=== PATIENT | male | born 1965 | race Caucasian/White ===

== ENCOUNTER 2019-07-31 09:24 | Outpatient (CLI) | payer OTHER, SELFPAY ==
--- NOTE | ~2019-07-31 | XR_ITS ---
EXAMINATION: XR foot LT standing 2V, XR foot RT standing 2V DATE: 07/31/2019 09:53 INDICATION: Unspecified osteoarthritis at the bilateral feet TECHNIQUE: 1. Standing dorsal plantar and lateral views of the left foot were obtained. 2. Standing dorsal plantar and lateral views of the right foot were obtained. COMPARISON: None. FINDINGS: Normal alignment at both feet. No fracture. Joint spaces appear normal. No evident osteophytosis or e rosions. Bone island at the head of the left talus. Soft tissues are unremarkable. No ankle joint eff usions. IMPRESSION: 1. Unremarkable radiographs of the bilateral feet with normal joint spaces. Reviewed, dictated and finalized at location A. IMPRESSION: 1. Unremarkable radiographs of the bilateral feet with normal joint spaces.
[2019-08-02 09:08] LABS: Anti Cyclic Citrullinated Pept >250 Units (<20)
== END 2019-07-31 09:25 | disposition home or self-care (01) ==
LOC: ANHIMG 09:26
PROVIDERS: PCP Internal Medicine; Visit Provider Internal Medicine
DX: M19.90 Unspecified osteoarthritis, unspecified site (principal)
CPT/HCPCS: 36415; 73620; 86038; 86200

== ENCOUNTER 2020-05-24 14:02 | Outpatient (CLI) | payer OTHER, SELFPAY ==
[2020-05-24 14:34] LABS: Hemoglobin 13.9 g/dL (14.0-18.0); Mean Corpuscular HGB Conc 32.3 g/dl (32-36); Mean Corpuscular Hemoglobin 29.6 pg (26-34); Mean Corpuscular Volume 91.7 fl (80-100); Mean Platelet Volume 10.3 fl (7.4-10.4); Platelet Count Result 282 k/mm3 (150-375); Red Blood Count 4.69 M/mm3 (4.6-6.20); Red Cell Distribution Width 13.6 % (11.5-14.5)
[2020-05-24 14:40] LABS: Add Urine Microscopic? YES; Appearance Urine Clear (Clear); Bilirubin Urine Negative (Negative); Blood Urine Negative (Negative); Color Urine Yellow (Yellow); Glucose Urine UA Negative (Negative); Ketones Urine Negative (Negative); Leukocyte Esterase Ur Negative LEU/UL (Negative); Mucus Urine Rare /lpf; Nitrate Urine Negative (Negative); Protein Urine 1+ mg/dL (Negative); RBC Urine 0-2 /hpf (0-2); Specific Grav Ur 1.025 (1.001-1.035); Urobilinogen Urine Negative mg/dL (<2.0); WBC Urine 0-3 /hpf
[2020-05-24 14:44] LABS: Creatinine Urine 164.3 mg/dL; Total Protein Urine Random 13 mg/dL; Ur Ttl Prot Creatinine Ratio 0.08 mg/mg (0-0.20)
[2020-05-24 14:47] LABS: Alanine Aminotransferase 29 U/L (4-50); Albumin Level 4.3 g/dL (3.5-5.1); Alkaline Phosphatase 63 U/L (38-126); Anion Gap 4 mmol/L (8-16); Aspartate Amino Transferase 29 U/L (17-59); Bilirubin,Total 0.2 mg/dL (0.2-1.3); Blood Urea Nitrogen 20 mg/dL (9-20); CRP < 0.5 mg/dL (<1.0); Calcium 9.3 mg/dL (8.4-10.2); Carbon Dioxide 27 mmol/L (22-30); Chloride 109 mmol/L (98-107); Estimated Glomerular Filt Rate 57; Glucose 79 mg/dL (75-110); Potassium 4.1 mmol/L (3.4-5.0); Sodium 140 mmol/L (137-145)
[2020-05-24 14:53] LABS: Complement C3 95 mg/dL (88-165)
[2020-05-24 15:38] LABS: Erythrocyte Sedimentation Rate 13 mm/hr (0-20)
[2020-05-29 15:16] LABS: SM Antibody <1.0; SM/RNP Antibody <1.0
[2020-05-29 19:25] LABS: SS-A <1.0; SS-B <1.0
[2020-05-29 19:33] LABS: Scleroderma 70 Antibody <1.0
[2020-05-29 23:35] LABS: ANCA Screen Negative (Negative)
== END 2020-05-24 14:03 | disposition home or self-care (01) ==
PROVIDERS: PCP Internal Medicine; Visit Provider Internal Medicine
DX: R80.9 Proteinuria, unspecified (principal); M05.79 Rheumatoid arthritis with rheumatoid factor of multiple sites without organ or systems involvement; M19.90 Unspecified osteoarthritis, unspecified site
CPT/HCPCS: 36415; 80053; 81001; 82570; 84156; 85027; 85652; 86021; 86140; 86160; 86225; 86235

== ENCOUNTER 2020-12-13 06:58 | Outpatient (CLI) | payer OTHER, SELFPAY ==
[2020-12-13 08:06] LABS: Alanine Aminotransferase 41 U/L (4-50); Alkaline Phosphatase 67 U/L (38-126); Anion Gap 3 mmol/L (8-16); Aspartate Amino Transferase 33 U/L (17-59); Bilirubin,Total 0.3 mg/dL (0.2-1.3); Blood Urea Nitrogen 17 mg/dL (9-20); Carbon Dioxide 29 mmol/L (22-30); Chloride 106 mmol/L (98-107); Estimated Glomerular Filt Rate > 60; Glucose 109 mg/dL (65-110); Potassium 4.3 mmol/L (3.4-5.0); Sodium 138 mmol/L (137-145)
[2020-12-13 08:40] LABS: Hemoglobin A1C 5.3 % (<5.7)
[2020-12-13 08:57] LABS: Creatinine Urine 221.8 mg/dL; Total Protein Urine Random 9 mg/dL; Ur Ttl Prot Creatinine Ratio 0.04 mg/mg (0-0.20)
== END 2020-12-13 06:59 | disposition home or self-care (01) ==
LOC: ANHLAB 07:01
PROVIDERS: PCP Internal Medicine; Visit Provider Internal Medicine
DX: R80.9 Proteinuria, unspecified (principal)
CPT/HCPCS: 36415; 80053; 82570; 83036; 84156

== ENCOUNTER → 2021-01-07 03:39 | Outpatient (CLI) | payer OTHER, SELFPAY ==
[2021-01-07 20:04] LABS: SARS-CoV-2 RNA PCR Negative
== END ==
PROVIDERS: PCP Internal Medicine; Visit Provider Internal Medicine Gastroenterology
DX: Z01.812 Encounter for preprocedural laboratory examination (principal); Z20.822 Contact with and (suspected) exposure to COVID-19
CPT/HCPCS: C9803; U0003; U0005

== ENCOUNTER 2021-01-10 01:22 | Day surgery (SDC) | payer OTHER, SELFPAY ==
[2020-12-25 10:01] VITALS: BMI 21.8
--- NOTE | 2021-01-09 15:28 | PM.HPGS ---
History of Present Illness History of Present Illness Consent: Risks, benefits, and alternatives have been discussed and questions answered. Patient agrees to proceed with procedure. Chief complaint: hx of colon polyps Narrative: Sohail Walton is a 55 year old male who was referred for colon cancer screening. He has had polyps removed in the past, about 3 years ago Review of Systems Review of Systems: All systems reviewed & are unremarkable except as noted in HPI and below PMFSH Past Medical History Medical History Arthritis Bilateral hand pain Inflammatory arthritis Protein in urine (~03/2020) Rheumatoid arthritis with rheumatoid factor of multiple sites without organ or systems involvement Social History Social History Smoking packs per day: 1 Smoking cigarettes per day: 20.0 Years smoked: 40 Smoking pack-years: 40.00 Smoking status: Current every day smoker Tobacco type: cigarettes Substance use type: does not use Living arrangements: with family Meds Home Medications and Allergies Home Medications Medication Instructions Recorded Confirmed Type naproxen 500 mg tablet 500 mg PO BID 06/08/19 12/25/20 History hydroxychloroquine 200 mg tablet 300 mg PO DAILY #135 tablet 12/20/20 12/25/20 Rx prednisone 10 mg tablet 10 mg PO DAILY #5 tablet 12/24/20 12/25/20 Rx Allergies Allergy/AdvReac Type Severity Reaction Status Date / Time No Known Allergies Allergy Verified 01/10/21 08:57 Exam Resp: Auscultation: clear to auscultation bilaterally Cardio: Rate: regular rate Rhythm: regular rhythm GI: GI Palp: Yes Soft to palpation and No Tenderness to palpation present (GI) Assessment and Plan Assessment and plan (1) Colon cancer screening: Code(s): Z12.11 - Encounter for screening for malignant neoplasm of colon Status: Acute Assessment and Plan: Colonoscopy with possible biopsy or polypectomy or cautery or injection of substances.
[2021-01-10 08:58] VITALS: BP 140/83; PULSE 56; RESP 18; TEMP 36.4; O2SAT 98; BMI 21.2
[2021-01-10] MEDS: LACTATED RINGERS 1,000 ML 150 ML IV CONT (09:01)
--- NOTE | 2021-01-10 09:04 | P.PNAN_ITS ---
Anes - Initial Pre Proc Eval Procedure: Operation Date: 01/10/21 10:00 Proposed Procedures p Screening Colonoscopy - Anthony Ferreira MD Date/Time: 01/10/21 09:04 Surgeon: Anthoyn Ferreira MD Pre Op Diagnosis: hx of colon polyps Patient Data Age: 55 Gender: M Height: 1.68 m Weight: 59.7 kg Last Vital Signs Temp 36.4 C L 01/10/21 08:58 Pulse 56 L 01/10/21 08:58 Resp 18 01/10/21 08:58 BP 140/83 01/10/21 08:58 Pulse Ox 98 01/10/21 08:58 Allergies Allergy/AdvReac Type Severity Reaction Status Date / Time No Known Allergies Allergy Verified 01/10/21 08:57 Home Medications Medication Instructions Recorded Confirmed Type naproxen 500 mg tablet 500 mg PO BID 06/08/19 12/25/20 History hydroxychloroquine 200 mg tablet 300 mg PO DAILY #135 tablet 12/20/20 12/25/20 Rx prednisone 10 mg tablet 10 mg PO DAILY #5 tablet 12/24/20 12/25/20 Rx Patient hx anesthesia problems: none Family hx anesthesia problems: none Results Review: All pre-operative results and documents have been reviewed as part of the pre-operative evaluation. [facility] Past Medical History Medical History Arthritis Bilateral hand pain Inflammatory arthritis Protein in urine (~03/2020) Rheumatoid arthritis with rheumatoid factor of multiple sites without organ or systems involvement Social History Social History Smoking packs per day: 1 Smoking cigarettes per day: 20.0 Years smoked: 40 Smoking pack-years: 40.00 Smoking status: Current every day smoker Tobacco type: cigarettes Substance use type: does not use Living arrangements: with family Anes - Eval Final PreProcedure Day of Procedure 01/10/21 09:04 Patient weight: normal Heart: regular rate and rhythm Lungs: clear to auscultation Airway: Mallampati scale class II Neurological: alert and oriented Last oral intake: >/= 8 hours ASA classification: III Emergent: no Anesthetic plan: proceed Anesthesia type and monitoring: general GIVS and standard monitoring Results Review: All pre-operative results and documents have been reviewed as part of the pre-operative evaluation. Informed Consent: The patient's anesthetic plan and its attendant risks and benefits were discussed with the patient/family/POA. Questions were solicited and answers provided to the satisfaction of the patient/family/POA.
[2021-01-10 10:10] VITALS: BP 101/58; PULSE 56; RESP 18; O2SAT 95
[2021-01-10 10:20] VITALS: BP 101/62; PULSE 54; RESP 18; O2SAT 98
[2021-01-10 10:28] VITALS: BP 124/66; PULSE 48; RESP 18; O2SAT 100
== END 2021-01-10 10:36 | disposition home or self-care (01) ==
PROVIDERS: PCP Internal Medicine; Visit Provider Internal Medicine Gastroenterology
PROC: 0DJD8ZZ Inspection of Lower Intestinal Tract, Via Natural or Artificial Opening Endoscopic (ICD-10-PCS; CPT 45378; principal; 2021-01-10 10:00)
DX: Z12.11 Encounter for screening for malignant neoplasm of colon (principal); K64.8 Other hemorrhoids; K62.1 Rectal polyp; K57.30 Diverticulosis of large intestine without perforation or abscess without bleeding; M05.79 Rheumatoid arthritis with rheumatoid factor of multiple sites without organ or systems involvement; F17.210 Nicotine dependence, cigarettes, uncomplicated
CPT/HCPCS: 45380; 88305; C9803; J2704; J7120; U0003; U0005

== ENCOUNTER 2022-02-21 10:12 | Outpatient (CLI) | payer OTHER, SELFPAY ==
[2022-02-21 11:13] LABS: Hematocrit 38.2 % (42.0-52.0); Hemoglobin 11.4 g/dL (14.0-18.0); Mean Corpuscular HGB Conc 29.8 g/dl (32-36); Mean Corpuscular Hemoglobin 24.6 pg (26-34); Mean Corpuscular Volume 82.3 fl (80-100); Mean Platelet Volume 9.4 fl (7.4-10.4); Platelet Count Result 324 k/mm3 (150-375); Red Blood Count 4.64 M/mm3 (4.6-6.20); Red Cell Distribution Width 16.6 % (11.5-14.5); White Blood Count 6.4 K/mm3 (4.5-10.0)
[2022-02-21 11:30] LABS: Alanine Aminotransferase 32 U/L (6-50); Albumin Level 3.9 g/dL (3.5-5.1); Alkaline Phosphatase 68 U/L (38-126); Anion Gap 3 mmol/L (8-16); Aspartate Amino Transferase 25 U/L (17-59); Bilirubin,Total 0.3 mg/dL (0.2-1.3); Blood Urea Nitrogen 14 mg/dL (9-20); CRP 0.6 mg/dL (<1.0); Calcium 8.7 mg/dL (8.4-10.2); Carbon Dioxide 27 mmol/L (22-30); Chloride 109 mmol/L (98-107); Estimated Glomerular Filt Rate > 60; Glucose 94 mg/dL (65-110); Potassium 4.3 mmol/L (3.4-5.0); Sodium 139 mmol/L (137-145)
[2022-02-21 11:45] LABS: Appearance Urine Clear (Clear); Bilirubin Urine Negative (Negative); Blood Urine Negative (Negative); Color Urine Yellow (Yellow); Glucose Urine UA Negative (Negative); Ketones Urine Negative (Negative); Leukocyte Esterase Ur Negative LEU/UL (Negative); Nitrate Urine Negative (Negative); Protein Urine Trace mg/dL (Negative); Specific Grav Ur >= 1.030 (1.001-1.035); Urobilinogen Urine 0.2 mg/dL (<2.0)
[2022-02-21 11:51] LABS: Mucus Urine Rare /lpf; RBC Urine 0-2 /hpf (0-2); Squamous Epithelial Cell Urine Rare /hpf (Few); WBC Urine 0-3 /hpf
[2022-02-21 11:52] LABS: Add Urine Microscopic? YES
[2022-02-21 11:52] LABS: Erythrocyte Sedimentation Rate 13 mm/hr (0-20)
== END 2022-02-21 10:13 | disposition home or self-care (01) ==
LOC: ANHLAB 10:13
PROVIDERS: PCP Internal Medicine; Visit Provider Internal Medicine
DX: M05.79 Rheumatoid arthritis with rheumatoid factor of multiple sites without organ or systems involvement (principal); M19.90 Unspecified osteoarthritis, unspecified site
CPT/HCPCS: 36415; 80053; 81001; 85027; 85652; 86140

== ENCOUNTER 2022-05-09 11:22 | Outpatient (CLI) | payer OTHER, SELFPAY ==
[2022-05-09 11:43] LABS: Hemoglobin 12.1 g/dL (14.0-18.0); Mean Corpuscular HGB Conc 30.3 g/dl (32-36); Mean Corpuscular Hemoglobin 25.8 pg (26-34); Mean Corpuscular Volume 85.3 fl (80-100); Mean Platelet Volume 9.6 fl (7.4-10.4); Platelet Count Result 312 k/mm3 (150-375); Red Blood Count 4.69 M/mm3 (4.6-6.20); Red Cell Distribution Width 18.6 % (11.5-14.5); White Blood Count 7.1 K/mm3 (4.5-10.0)
[2022-05-09 12:04] LABS: Alanine Aminotransferase 35 U/L (6-50); Albumin Level 3.9 g/dL (3.5-5.1); Alkaline Phosphatase 63 U/L (38-126); Anion Gap 4 mmol/L (8-16); Aspartate Amino Transferase 28 U/L (17-59); Bilirubin,Total 0.5 mg/dL (0.2-1.3); Blood Urea Nitrogen 15 mg/dL (9-20); CRP < 0.5 mg/dL (<1.0); Calcium 8.3 mg/dL (8.4-10.2); Carbon Dioxide 28 mmol/L (22-30); Chloride 107 mmol/L (98-107); Estimated Glomerular Filt Rate > 60; Glucose 101 mg/dL (65-110); Potassium 4.8 mmol/L (3.4-5.0); Sodium 139 mmol/L (137-145)
[2022-05-09 12:07] LABS: Appearance Urine Clear (Clear); Bacteria Urine None Seen /hpf; Bilirubin Urine Negative (Negative); Blood Urine Negative (Negative); Color Urine Yellow (Yellow); Glucose Urine UA Negative (Negative); Ketones Urine Negative (Negative); Leukocyte Esterase Ur Trace LEU/UL (Negative); Nitrate Urine Negative (Negative); Non Pathogenic Casts 0-2; Protein Urine Trace mg/dL (Negative); RBC Urine 0-2 /hpf (0-2); Specific Grav Ur 1.021 (1.001-1.035); Squamous Epithelial Cell Urine None seen /hpf (Few); WBC Urine 0-5 /hpf
[2022-05-09 12:22] LABS: Add Urine Microscopic? YES
[2022-05-09 12:44] LABS: Erythrocyte Sedimentation Rate 9 mm/hr (0-20)
== END 2022-05-09 11:23 | disposition home or self-care (01) ==
PROVIDERS: PCP Internal Medicine; Visit Provider Internal Medicine
DX: M05.79 Rheumatoid arthritis with rheumatoid factor of multiple sites without organ or systems involvement (principal); M19.90 Unspecified osteoarthritis, unspecified site
CPT/HCPCS: 36415; 80053; 81001; 85027; 85652; 86140

== ENCOUNTER 2024-07-13 08:50 | Outpatient (CLI) | payer OTHER, SELFPAY ==
--- NOTE | ~2024-07-13 | CT_ITS ---
CT Scan of the Chest without Contrast: Clinical Indication: Lung cancer screening, nicotine dependence Technique: Contiguous sections were acquired throughout the chest without intravenous contrast. Dose reduction technique was used on this scan by utilizing automated exposure control and iterative recon struction technique. The dose-length product (DLP) was 73.74 mGy-cm. Findings: There is no evidence of any significant mediastinal, hilar or axillary lymphadenopathy. The mediastin al soft tissues appear normal. There is no evidence of pleural or pericardial effusion. 2 mm left upper lobe nodule present, possibly calcified (axial image 68). Images through the upper abdomen reveal no abnormalities. Impression: Lung RADS 2: Benign appearance. 12 month follow-up screening CT advised. Reviewed, dictated and finalized at location . Impression: Lung RADS 2: Benign appearance. 12 month follow-up screening CT advised.
[2024-07-13 09:14] LABS: Basophils Percent Auto 0.6 % (0.2-1.2); Eosinophils Absolute Auto 0.1 K/mm3 (0-0.3); Hematocrit 43.8 % (42.0-52.0); Hemoglobin 13.6 g/dL (14.0-18.0); Immature Granulocyte Absolute 0.03 K/mm3 (0.00-0.031); Immature Granulocyte Percent A 0.4 % (0-0.5); Lymphocytes Absolute Auto 1.08 K/mm3 (0.9-3.2); Lymphocytes Percent Auto 15.4 % (18.3-44.2); Mean Corpuscular HGB Conc 31.1 g/dl (32-36); Mean Corpuscular Hemoglobin 27.1 pg (26-34); Mean Corpuscular Volume 87.3 fl (80-100); Mean Platelet Volume 9.8 fl (7.4-10.4); Monocytes Absolute Auto 0.8 K/mm3 (0.1-0.6); Neutrophils Absolute Auto 4.9 K/mm3 (1.3-6.7); Neutrophils Percent Auto 69.6 % (45.5-73.1); Platelet Count Result 291 k/mm3 (150-375); Red Blood Count 5.02 M/mm3 (4.6-6.20); Red Cell Distribution Width 20.7 % (11.5-14.5)
--- OUTSIDE RECORDS SUMMARY | 2024-07-13 09:23 | XMS_ITS | Data Portability ---
Author Organization [place] [facility], Main Office Address [address] [place] [address] Care Team Providers Care Licensing Registration Examiner Name Role Phone GEORGE PAGE Primary Care Provider [phone] GEORGE PAGE Referring Provider Assessment No assessment recorded. Plan of Treatment Reminders Order Date Submit Date Provider Last Modified By Organization Details Last Modified Time Details Appointments None recorded. Lab PSA, total, serum or plasma 2024 025 [facility] Orders, [address] [place], [address], 5 04:25:58 lipid panel, serum 2024 025 [facility] (Lab), [address] [place], [address], 5 04:25:57 HbA1c (hemoglobi n A1c), blood 2024 025 [facility] Lab Orders, [address] [place], [address], 5 04:25:57 TSH, serum, reflex free T4 2024 025 [facility] Orders, [address] [place], [address], 5 04:25:57 Referral None recorded. Procedures None recorded. Surgeries None recorded. Imaging LDCT, chest, for lung cancer screening - Please call patient to schedule. 2024 025 [facility], [address] [facility] [address], [address], 5 15:00:37 Medication Orders None recorded. Patient TargetsNo targets recorded. Patient Instructions Encounter Date Encounter Id Patient Instructions Last Modified By Organization Details Last Modified Time 06/27/2024 [id number] Discussed medication compliance and routine follow up. Discussed healthy diet and routine exercise. Reviewed vaccine records and made recommendations as needed. Encouraged annual eye and dental exams, as well as twice yearly dental cleanings. Will check screening labs as listed below. [email or web address] Not available 06/27/2024 14:36:59 BP-follow up. Av oid salty heavily salty foods. Advised to stop smoking. Labs ordered/will call with results. [email or web address] Not available 06/27/2024 14:38:16 Reason for Referral None Reported. Results Created Date Observation Date Name Description Value Unit Range Abnormal Flag Note LastModifiedBy Organization Detail LastModifiedTime Result Notes None recorded. Problems Name Problem SNOMED Code Status Onset Date Resolution Date Notes Provider Name and Address Organization Details Recorded Time On examinat ion - rash present Completed Not Available [facility] 3 15:19:31 Eruption 296295025 Completed Not Available [facility] 3 15:19:31 Polyp of colon 88069334 Active 2020 Not Available [facility] 3 15:19:31 Smoker 96805861 Active 2024 LIANNA Garces [address] [facility], [place], [address] , [employer] 5 14:19:28 Psoriati c arthriti s 133886343 Active [address] Drake fofana y. LIANNA Garces [address] [address], [place], [address] , [employer] 5 14:39:27 Problem Notes None recorded. Medical Equipment None Reported. Allergies Allergen ID Allergen Name Allergen Category Reaction Reaction Severity Criticality Documentation Date Start Date Code Code System Note Provider Name and Address Organization Details Recorded Time 29145 acetamino phen / hydrocodo ne medicatio n vomiting Not available Not available 04/08/2022 35913 2 RxNorm Not Available [facility] 3 15:24:41 Medications Name Sig Start Date Stop Date Status Note LastModified by Organization Details LastModified Time fluconazo le 100 mg tablet Take 1 tablet every day by oral route. 12/10 completed Not Available Not Available Not Available prednison e 20 mg tablet TAKE 1 TABLET BY MOUTH DAILY 06/27 completed Not Available Not Available Not Available permethri n 5 % topical cream 06/27 completed Not Available Not Available Not Available acetamino phen 300 mg-codein e 30 mg tablet 12/10 completed Not Available Not Available Not Available leflunomi de 20 mg tablet 06/27 completed had to stop for a while and has not restarte d Not Available Not Available Not Available tramadol 50 mg tablet 12/10 completed Not Available Not Available Not Available triamcino lone acetonide 0.1 % topical cream APPLY A THIN LAYER TO THE AFFECTED AREA(S) BY TOPICAL ROUTE 2 TIMES PER DAY 12/10 completed Not Available Not Available Not Available methotrex ate sodium 2.5 mg tablet TAKE 8 TABLETS BY MOUTH ONCE A WEEK active Not Available Not Available No t Available prednison e 2.5 mg tablet PLEASE SEE ATTACHED FOR DETAILED DIRECTIO NS active Not Available Not Available No t Available cephalexi n 500 mg capsule active Not Available Not Available Not Available nystatin 100,000 unit/gram topical cream APPLY TO THE AFFECTED AREA(S) BY TOPICAL ROUTE 2 TIMES PER DAY active Not Available Not Available No t Available folic acid 1 mg tablet TAKE 1 TABLET BY MOUTH EVERY DAY active Not Available Not Available No t Available hydroxyzi ne HCl 25 mg tablet Take 1 tablet 3 times a day by oral route. 06/27 completed Not Available Not Available Not Available hydroxych loroquine 200 mg tablet Take 1 tablet every day by oral route. 2024 active Not Available Not Available Not Avai lable methylpre dnisolone 4 mg tablets in a dose pack TAKE 6 TABLETS ON DAY 1 DIRECTED ON PACKAGE AND DECREASE BY 1 TAB EACH DAY FOR A TOTAL OF 6 DAYS 12/10 completed Not Available Not Available Not Available naproxen 500 mg tablet TAKE 1 TABLET BY MOUTH TWICE A DAY 06/27 completed Not Available Not Available Not Available chlorhexi dine gluconate 0.12 % mouthwash active Not Available Not Available No t Available folic acid active Not Available Not Available Not Available methotrex ate takes 8 pills on Wednesday active Not Available Not Available No t Available Proctosol HC 2.5 % topical cream perineal applicato r APPLY A THIN LAYER TO THE AFFECTED AREA(S) BY TOPICAL ROUTE 2-4 TIMESDAI LY active Not Available Not Available No t Available Vitals Date Recorded Body mass index (BMI) Body height Oxygen saturation Oxygen saturation in Arterial blood by Pulse oximetry Heart rate Body temperature Body weight Systolic blood pressure Diastolic blood pressure Provider Name and Address Organization Details Last Updated DateTime 1 22.3 kg/m2 165.1 cm 98 % 98 % 56 /min 98.6 [degF] 85559.3 8 g 128 mm[Hg] 74 mm[Hg] Not Available [facility] 3 15:18:08 Date Recorded Body weight Body temperature Body mass index (BMI) Body height Heart rate Oxygen saturation Oxygen saturation in Arterial blood by Pulse oximetry Systolic blood pressure Diastolic blood pressure Provider Name and Address Organization Details Last Updated DateTime 5 38811.3 4 g 97.1 [degF] 22.4 kg/m2 167.64 cm 62 /min 98 % 98 % 142 mm[Hg] 82 mm[Hg] MASOUD Del Cid [place] - [place] [employer] [facility] 5 14:01:54 Social History Question Answer Notes LastModified by Organizat ion Details LastModified Time Tobacco Smoking Status Current Every Day Smoker Not Available [facility] 04/08/2022 15:15:07 Do You Have An Advance Directive? No [id number] Information not available 04/08/2022 Is Blood Transfusion Acceptable In An Emergency? Yes Information not available 06/27/2024 What Is Your Level Of Caffeine Consumption? Moderate [id number] Information not available 04/08/2022 How Much Tobacco Do You Chew? None [id number] Information not available 04/08/2022 What Type Of Diet Are You Following? REGULAR [id number] Information not available 04/08/2022 Which Illicit Or Recreational Drugs Have You Used? Marijuana Information not available 06/27/2024 What Is The Highest Grade Or Level Of School You Have Completed Or The Highest Degree You Have Received? [id number] Information not available 06/27/2024 Have There Been Any Changes To Your Family Or Social Situation? No Information not available 06/27/2024 Are There Any Guns Present In Your Home? Yes [id number] Information not available 04/08/2022 Where Do You Live? [facility] Information not available 06/27/2024 What Was The Date Of Your Most Recent Tobacco Screening? 06/27/2024 Information not available 06/27/2024 What Is Your Current Pack Years? 20-29packyears Information not available 06/27/2024 Do You Have Any Pets? Yes Information not available 06/27/2024 What Is Your Relationship Status? Information not available 06/27/2024 Do You Use Your Seat Belt Or Car Seat Routinely? Yes Information not available 06/27/2024 Do You Have Smoke And Carbon Monoxide Detectors In Your Home? Yes Information not available 06/27/2024 At What Age Did You Start Smoking Tobacco? 13 [id number] Information not available 04/08/2022 Are You Passively Exposed To Smoke? Yes Information not available 06/27/2024 Are There Any Smokers In Your House? Yes Information not available 06/27/2024 How Much Tobacco Do You Smoke? 0.5 PPD [id number] Information not available 04/08/2022 Do You Use Sunscreen Routinely? Yes [id number] Information not available 04/08/2022 How Many Years Have You Smoked Tobacco? 46 [email or web address] Information not available 06/27/2024 Have You Recently Traveled Abroad? No Information not available 06/27/2024 Have You Used IV Drugs? No Information not available 06/27/2024 Sex: Male Functional Status Question Answer Note LastModified by Organizat ion Details LastModified Time Do you use any illicit or recreational drugs? Yes Information not available 06/27/2024 What is your level of alcohol consumption? Occasional Information not available 06/27/2024 Are you currently employed? 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 None Information not available 06/27/2024 Mental Status Question Answer Note LastModified by Organization D etails LastModified Time Do you feel stressed (tense, restless, nervous, or anxious, or unable to sleep at night)? [id number] Information not available 06/27/2024 Family History Nothing Reported Notes:PT IS ADOPTED Medical History No medical history recorded. Past Encounters Encounter ID Performer Location Encounter Start Date Encounter Closed Date Diagnosis/Indication Diagnosis SNOMED-CT Code Diagnosis ICD10 Code Diagnosis Note [id number] George Page MD [facility] Internal Med [facility] [address] [facility] [place] [address] 06/17/2020 00:00:00 06/17/2020 12:19:48 [id number] George Page MD [facility] Internal Med [facility] [address] [facility] [place] [address] 06/27/2024 13:53:32 06/27/2024 14:45:19 History of nicotine dependence 2816874665 06066252 Z87.891 Adult [facility] th examination 259943463 Z00.00 Z13.29 Z13.220 Z13.89 Z13.1 Z00.01 fasting labs ordered/ waiting for faxed labs from Dr. Juan office Screening for malignant neoplasm of prostate 704120665 Z12.5 Psoriatic arthritis [address] Juan regularly. Health Concerns Section Related Observation LastModified by Organization Detai ls LastModified Time None Recorded Concern Status LastModified by Organization Details LastModified Time None Recorded Advance Directives Directive N: Payers Encounter Date Sequence Insurance Name Policy Number Policy Rahman Covered Member ID Rahman Member ID Guarantor Name 06/27/[address] [facility] [employer] [id number] Sohail Walton [id number] Sohail Walton Notes Date Note Type Note Provider Name and Address Organization Details Recorded Time 06/27/2024 text/html Patient is a 59 year old male that presents to the office for annual wellness and to establish care at this time. Patient reports no new concerns at this time. smoke- 40year/ 1p/day Dr Juan- fax labsDr. Ferreira- to fax colonoscopy results LDCT- smoker-orderedlabs - have fax/ ordered BP- advised to check at home, decrease salt intake, denies headache or blurred vision. Checks at home occasionally. Reports a little stress today from work but usually never that high. PSA- aware, ordered.colonoscop y- Dr. FerreiraDgckq-Yqk-jq, awareCovid-no ,awareTdap-no, awareShingles-no, awarePneumo-no, aware YRN GarcesP-C [address] [facility], [facility] [address], [place], [address], [facility] 06/27/2024 14:41:14
[2024-07-13 09:32] LABS: Alanine Aminotransferase 35 U/L (6-50); Albumin Level 3.8 g/dL (3.5-5.1); Alkaline Phosphatase 64 U/L (38-126); Anion Gap 2 mmol/L (4-12); Aspartate Amino Transferase 36 U/L (17-59); Bilirubin,Total 0.3 mg/dL (0.2-1.3); Blood Urea Nitrogen 16 mg/dL (9-20); CRP < 0.5 mg/dL (<1.0); Calcium 9.1 mg/dL (8.4-10.2); Carbon Dioxide 31 mmol/L (22-30); Chloride 107 mmol/L (98-107); Estimated Glomerular Filt Rate > 60; Glucose 108 mg/dL (65-110); Potassium 4.3 mmol/L (3.4-5.0); Sodium 140 mmol/L (137-145); Total Protein 6.7 g/dL (6.3-8.2)
[2024-07-13 09:41] LABS: Add Urine Microscopic? NO; Appearance Urine Clear (Clear); Bilirubin Urine Negative (Negative); Blood Urine Negative (Negative); Color Urine Yellow (Yellow); Glucose Urine UA Negative (Negative); Ketones Urine Negative (Negative); Leukocyte Esterase Ur Negative LEU/UL (Negative); Nitrate Urine Negative (Negative); Protein Urine Negative (Negative); Specific Grav Ur 1.021 (1.001-1.035); Urobilinogen Urine 0.2 mg/dL (<2.0)
[2024-07-13 09:44] LABS: Erythrocyte Sedimentation Rate 1 mm/hr (0-20)
== END 2024-07-13 08:51 | disposition home or self-care (01) ==
PROVIDERS: PCP Internal Medicine; Referring Provider Internal Medicine
DX: Z12.2 Encounter for screening for malignant neoplasm of respiratory organs (principal); M06.9 Rheumatoid arthritis, unspecified; Z87.891 Personal history of nicotine dependence
CPT/HCPCS: 36415; 71271; 80053; 81003; 85025; 85652; 86140

== ENCOUNTER 2024-09-30 11:27 | Outpatient (CLI) | payer OTHER, SELFPAY ==
[2024-09-30 12:12] LABS: Hematocrit 45.3 % (42.0-52.0); Hemoglobin 14.5 g/dL (14.0-18.0); Immature Granulocyte Percent A 0.6 % (0-0.5); Lymphocytes Absolute Auto 1.89 K/mm3 (0.9-3.2); Mean Corpuscular HGB Conc 32.0 g/dl (32-36); Mean Corpuscular Hemoglobin 30.5 pg (26-34); Mean Corpuscular Volume 95.2 fl (80-100); Nucleated Red Blood Cells Absolute Auto 0.000 K/mm3 (0.0-0.012); Nucleated Red Blood Cells Perc 0.0 % (0.0-0.2); Platelet Count Result 244 k/mm3 (150-375); Red Blood Count 4.76 M/mm3 (4.6-6.20); White Blood Count 6.3 K/mm3 (4.5-10.0)
[2024-09-30 12:24] LABS: Add Urine Microscopic? YES; Appearance Urine Clear (Clear); Glucose Urine UA Negative (Negative); Leukocyte Esterase Ur Trace LEU/UL (Negative); Nitrate Urine Negative (Negative); Non Pathogenic Casts 0-2; Specific Grav Ur 1.020 (1.001-1.035)
[2024-09-30 12:29] LABS: Hemoglobin A1C 5.4 % (<5.7)
[2024-09-30 12:32] LABS: Alanine Aminotransferase 32 U/L (6-50); Albumin Level 3.9 g/dL (3.5-5.1); Alkaline Phosphatase 56 U/L (38-126); Anion Gap 3 mmol/L (4-12); Aspartate Amino Transferase 31 U/L (17-59); Bilirubin,Total 0.4 mg/dL (0.2-1.3); Blood Urea Nitrogen 17 mg/dL (9-20); CRP < 0.5 mg/dL (<1.0); Calcium 9.1 mg/dL (8.4-10.2); Carbon Dioxide 28 mmol/L (22-30); Chloride 106 mmol/L (98-107); Estimated Glomerular Filt Rate > 60; Glucose 91 mg/dL (65-110); Potassium 4.2 mmol/L (3.4-5.0); Sodium 137 mmol/L (137-145); Total Protein 6.7 g/dL (6.3-8.2)
[2024-09-30 12:37] LABS: Cholesterol 191 mg/dL (0-200); HDL Direct 65 mg/dL; Triglycerides 93 mg/dL (<150)
[2024-09-30 13:00] LABS: Thyroid Stimulating Hormone Reflex 0.765 uIU/mL (0.465-4.68)
[2024-09-30 13:13] LABS: Prostate Specific Antigen 1.7 ng/mL (< OR = 4.0)
== END 2024-09-30 11:28 | disposition home or self-care (01) ==
PROVIDERS: Internal Medicine; PCP Internal Medicine
DX: M06.9 Rheumatoid arthritis, unspecified (principal); Z00.00 Encounter for general adult medical examination without abnormal findings; Z13.29 Encounter for screening for other suspected endocrine disorder; Z13.220 Encounter for screening for lipoid disorders; Z13.89 Encounter for screening for other disorder; Z13.1 Encounter for screening for diabetes mellitus; Z00.01 Encounter for general adult medical examination with abnormal findings
CPT/HCPCS: 36415; 80053; 80061; 81001; 83036; 84100; 84153; 84443; 85025; 85652; 86140; G0103